=== PATIENT | male | born 2005 | race Caucasian/White ===

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

== ENCOUNTER 2024-05-24 10:43 | Outpatient (CLI) | payer BC | END 2024-05-24 10:44 | disposition home or self-care (01) | LOC: BICULT 10:43 | PROVIDERS: ATTEND Physician Assistant | DX: N63.20 Unspecified lump in the left breast, unspecified quadrant (principal); N62 Hypertrophy of breast ==